=== PATIENT | male | born 2000 | race Caucasian/White ===

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

== ENCOUNTER 2021-02-17 01:34 | Observation (INO) | payer OTHER ==
[2021-02-17] MEDS ORDERED: SODIUM CHLORIDE 0.9% 1,000 ML IV STA (02:08)
[2021-02-17] MEDS ORDERED: ONDANSETRON 4 MG/2 ML VIAL IVP STA (02:08)
[2021-02-17] MEDS ORDERED: KETOROLAC 15 MG/ML 1 ML VIAL IVP STA ×2 (02:08→08:42)
--- NOTE | 2021-02-17 02:10 | ED ---
Abdominal Pain HPI - General Source: patient Mode of arrival: ambulatory Limitations: no limitations <Dakota South - Last Filed: 02/17/21 03:33> <Karl Cormier - Last Filed: 02/21/21 23:22> - General Chief Complaint: Abdominal Pain Stated Complaint: Abd Pain Time Seen by Provider: 02/17/21 01:47 - History of Present Illness Initial Comments: 20-year-old male presents to emergency Department with a chief complaint of abdominal pain. Patient reports the pain started several hours prior to arrival after he went to the gym. Patient reports it feels like pressure in the right lower quadrant region. He reports some nausea but denies any associated vomiting. No prior surgical abdominal history. Pain does not appear to be postprandial. States the pain is 7/10, pressure at this time. States the pain is exacerbated with palpation to the region. Denies any constipation or diarrhea. Denies any testicular swelling tenderness or penile discharge. Denies hematuria, hematochezia or melena. (Dakota South) - Related Data Previous Rx's Medication Instructions Recorded Acetaminophen Tab [Tylenol] 650 mg PO Q6H #30 tab 02/17/21 Docusate [Colace] 100 mg PO BID #20 cap 02/17/21 Ibuprofen [Motrin] 600 mg PO Q6HR PRN #40 tab 02/17/21 oxyCODONE HCL [OxyIR] 5 mg PO Q6H PRN 3 Days #10 tab 02/17/21 Allergies Allergy/AdvReac Type Severity Reaction Status Date / Time No Known Allergies Allergy Verified 02/17/21 06:45 Review of Systems ROS Other: All systems not noted in ROS Statement are negative. <Dakota [place] - Last Filed: 02/17/21 03:33> ROS Other: All systems not noted in ROS Statement are negative. <Karl Cormier - Last Filed: 02/21/21 23:22> ROS Statement: Those systems with pertinent positive or pertinent negative responses have been documented in the HPI. Past Medical History Past Medical History: Asthma History of Any Multi-Drug Resistant Organisms: None Reported Past Surgical History: Orthopedic Surgery Past Psychological History: No Psychological Hx Reported Smoking Status: Never smoker Past Alcohol Use History: None Reported Past Drug Use History: None Reported <Dakota South - Last Filed: 02/17/21 03:33> - Past Family History Mother Family Medical History: Diabetes Mellitus, Hypertension Father Family Medical History: AFIB, Hypertension <Karl Cormier - Last Filed: 02/21/21 23:22> General Exam Limitations: no limitations General appearance: alert, in no apparent distress, obese Head exam: Present: atraumatic, normocephalic, normal inspection Eye exam: Present: normal appearance, PERRL, EOMI Pupils: Present: normal accommodation ENT exam: Present: normal exam, normal oropharynx, mucous membranes moist Neck exam: Present: normal inspection, full ROM. Absent: tenderness Respiratory exam: Present: normal lung sounds bilaterally. Absent: respiratory distress Cardiovascular Exam: Present: regular rate, normal rhythm, normal heart sounds. Absent: systolic murmur GI/Abdominal exam: Present: soft, tenderness (Positive McBurney point tenderness). Absent: distended, guarding, rebound, rigid Extremities exam: Present: normal inspection, full ROM, normal capillary refill. Absent: tenderness Back exam: Present: normal inspection, full ROM. Absent: tenderness Neurological exam: Present: alert, oriented X3 Psychiatric exam: Present: normal affect, normal mood Skin exam: Present: warm, dry, intact, normal color <Dakota South - Last Filed: 02/17/21 03:33> Course Vital Signs 02/17/21 02/17/21 02/17/21 01:36 03:10 07:09 Temperature 97.2 F L Pulse Rate 68 78 77 Respiratory 18 16 18 Rate Blood Pressure 139/84 118/63 121/71 O2 Sat by Pulse 99 97 97 Oximetry Medical Decision Making - Lab Data Result diagrams: 02/17/21 02:15 02/17/21 02:15 <Dakota South - Last Filed: 02/17/21 03:33> - Lab Data Result diagrams: 02/18/21 11:22 02/17/21 02:15 <Karl Cormier - Last Filed: 02/21/21 23:22> - Medical Decision Making 20-year-old male presents to emergency Department with a chief complaint of ab dominal pain. rlq tenderness on exam. white count of 19k. ct abdomen pelvis shows acute appendicitis. pt will be admitted for further management. Dr cormier discussed with case with Dr Joyce. pt started on antibiotics. NPO. (Dakota South) I saw this patient in conjunction with the physician commercial real estate assistant. I performed independent history and physical exam. Agree with case management. (Karl Cormier) - Lab Data Lab Results 02/17/21 02/17/21 02/17/21 Range/Units 02:15 02:15 02:15 WBC 19.8 H (4.0-11.0) k/uL RBC 4.85 (4.30-5.90) m/uL Hgb 14.7 (13.0-17.5) gm/dL Hct 43.3 (39.0-53.0) % MCV 89.2 (80.0-100.0) fL MCH 30.3 (25.0-35.0) pg MCHC 33.9 (31.0-37.0) g/dL RDW 13.1 (11.5-15.5) % Plt Count 250 (150-450) k/uL MPV 7.9 Neutrophils % 89 % Lymphocytes % 6 % Monocytes % 3 % Eosinophils % 1 % Basophils % 0 % Neutrophils # 17.7 H (1.3-7.7) k/uL Lymphocytes # 1.1 (1.0-4.8) k/uL Monocytes # 0.6 (0-1.0) k/uL Eosinophils # 0.2 (0-0.7) k/uL Basophils # 0.1 (0-0.2) k/uL Sodium 135 L (137-145) mmol/L Potassium 3.9 (3.5-5.1) mmol/L Chloride 101 (98-107) mmol/L Carbon Dioxide 22 (22-30) mmol/L Anion Gap 12 mmol/L BUN 12 (9-20) mg/dL Creatinine 0.82 (0.66-1.25) mg/dL Est GFR (CKD-EPI)AfAm >90 (>60 ml/min/1.73 sqM) Est GFR (CKD-EPI)NonAf >90 (>60 ml/min/1.73 sqM) Glucose 105 H (74-99) mg/dL Calcium 10.3 H (8.4-10.2) mg/dL Total Bilirubin 1.1 (0.2-1.3) mg/dL AST 43 (17-59) U/L ALT 23 (4-49) U/L Alkaline Phosphatase 90 (38-126) U/L Total Protein 7.4 (6.3-8.2) g/dL Albumin 4.7 (3.5-5.0) g/dL Lipase 37 (23-300) U/L Urine Color Yellow Urine Appearance Clear (Clear) Urine pH 7.0 (5.0-8.0) Ur Specific [place] 1.025 (1.001-1.035) Urine Protein Negative (Negative) Urine Glucose (UA) Negative (Negative) Urine Ketones 2+ H (Negative) Urine Blood Negative (Negative) Urine Nitrite Negative (Negative) Urine Bilirubin Negative (Negative) Urine Urobilinogen <2.0 (<2.0) mg/dL Ur Leukocyte Esterase Negative (Negative) Coronavirus (PCR) (Not Detectd) 02/17/21 Range/Units 04:03 WBC (4.0-11.0) k/uL RBC (4.30-5.90) m/uL Hgb (13.0-17.5) gm/dL Hct (39.0-53.0) % MCV (80.0-100.0) fL MCH (25.0-35.0) pg MCHC (31.0-37.0) g/dL RDW (11.5-15.5) % Plt Count (150-450) k/uL MPV Neutrophils % % Lymphocytes % % Monocytes % % Eosinophils % % Basophils % % Neutrophils # (1.3-7.7) k/uL Lymphocytes # (1.0-4.8) k/uL Monocytes # (0-1.0) k/uL Eosinophils # (0-0.7) k/uL Basophils # (0-0.2) k/uL Sodium (137-145) mmol/L Potassium (3.5-5.1) mmol/L Chloride (98-107) mmol/L Carbon Dioxide (22-30) mmol/L Anion Gap mmol/L BUN (9-20) mg/dL Creatinine (0.66-1.25) mg/dL Est GFR (CKD-EPI)AfAm (>60 ml/min/1.73 sqM) Est GFR (CKD-EPI)NonAf (>60 ml/min/1.73 sqM) Glucose (74-99) mg/dL Calcium (8.4-10.2) mg/dL Total Bilirubin (0.2-1.3) mg/dL AST (17-59) U/L ALT (4-49) U/L Alkaline Phosphatase (38-126) U/L Total Protein (6.3-8.2) g/dL Albumin (3.5-5.0) g/dL Lipase (23-300) U/L Urine Color Urine Appearance (Clear) Urine pH (5.0-8.0) Ur Specific [place] (1.001-1.035) Urine Protein (Negative) Urine Glucose (UA) (Negative) Urine Ketones (Negative) Urine Blood (Negative) Urine Nitrite (Negative) Urine Bilirubin (Negative) Urine Urobilinogen (<2.0) mg/dL Ur Leukocyte Esterase (Negative) Coronavirus (PCR) Not Detected (Not Detectd) Disposition Is patient prescribed a controlled substance at d/c from ED?: No Time of Disposition: 03:35 <Dakota South - Last Filed: 02/17/21 03:33> <Karl Cormier - Last Filed: 02/21/21 23:22> Clinical Impression: Acute appendicitis Disposition: ADMITTED IP TO THIS HOSP Condition: Fair
[2021-02-17 02:30] LABS: Appearance,Urine Clear (Clear); Bilirubin,Urine Negative (Negative); Blood,Urine Negative (Negative); Color,Urine Yellow; Glucose,Urine (UA) Negative (Negative); Ketones,Urine 2+ (Negative); Leukocyte Esterase,Urine Negative (Negative); Nitrite,Urine Negative (Negative); Protein,Urine Negative (Negative); Specific Gravity,Urine 1.025 (1.001-1.035); Urobilinogen,Urine <2.0 mg/dL (<2.0)
[2021-02-17 02:33] LABS: Basophils # (A) 0.1 k/uL (0-0.2); Basophils % (A) 0 %; Eosinophils # (A) 0.2 k/uL (0-0.7); Eosinophils % (A) 1 %; HCT 43.3 % (39.0-53.0); HGB 14.7 gm/dL (13.0-17.5); Lymphocytes # (A) 1.1 k/uL (1.0-4.8); Lymphocytes % (A) 6 %; MCH 30.3 pg (25.0-35.0); MCHC 33.9 g/dL (31.0-37.0); MCV 89.2 fL (80.0-100.0); Mean Platelet Volume 7.9; Monocytes # (A) 0.6 k/uL (0-1.0); Monocytes % (A) 3 %; Neutrophils # (A) 17.7 k/uL (1.3-7.7); Neutrophils % (A) 89 %; Platelet Count 250 k/uL (150-450); RBC 4.85 m/uL (4.30-5.90); RDW 13.1 % (11.5-15.5); WBC 19.8 k/uL (4.0-11.0)
[2021-02-17 02:41] LABS: ALT 23 U/L (4-49); AST 43 U/L (17-59); African American GFR (CKD) >90 (>60 ml/min/1.73 sqM); Albumin 4.7 g/dL (3.5-5.0); Alkaline Phosphatase 90 U/L (38-126); Anion Gap 12 mmol/L; Blood Urea Nitrogen 12 mg/dL (9-20); Calcium 10.3 mg/dL (8.4-10.2); Carbon Dioxide 22 mmol/L (22-30); Chloride 101 mmol/L (98-107); Glucose 105 mg/dL (74-99); Lipase 37 U/L (23-300); Non-African American GFR(CKD) >90 (>60 ml/min/1.73 sqM); Potassium 3.9 mmol/L (3.5-5.1); Sodium 135 mmol/L (137-145); Total Bilirubin 1.1 mg/dL (0.2-1.3); Total Protein 7.4 g/dL (6.3-8.2)
--- NOTE | 2021-02-17 02:52 | CT ---
EXAMINATION TYPE: CT abdomen pelvis w con DATE OF EXAM: 02/17/2021 COMPARISON: None HISTORY: pain CT DLP: 992.9 mGycm Automated exposure control for dose reduction was used. CONTRAST: Performed with IV Contrast, patient injected with 100 mL of Isovue 300. Images obtained from the diaphragm to the floor the pelvis with IV contrast. Lung bases are clear. There is no pleural effusion. Heart size is normal. There is no pericardial eff usion. Liver spleen stomach pancreas gallbladder appear intact. Bile ducts are not dilated. There is no adrenal mass. Kidneys show satisfactory contrast opacification. There is no hydronephrosi s. Delayed images show normal renal excretion. There is no retroperitoneal adenopathy. Bladder disten ds smoothly. There is no inguinal hernia. There is no evidence of a pelvic mass. There is no free flu id in the pelvis. There is thickened appendix that measures 11 mm. There is mild fat stranding around the appendix. Lumbar vertebra appear intact. The posterior elements are intact. There is no compression fracture. B jordi pelvis is intact. There is no mesenteric edema. There is no ascites or free air. There is no derrick l obstruction. IMPRESSION: Thickened appendix with surrounding inflammation related to acute appendicitis. No abscess.
[2021-02-17] MEDS ORDERED: PIPERACILLIN-TAZOBACTAM 3.375 GM in SODIUM CHLORIDE 0.9% 100 ML IVPB STA (03:31)
[2021-02-17] MEDS ORDERED: ONDANSETRON 4 MG/2 ML VIAL IVP PRN (03:31)
[2021-02-17] MEDS ORDERED: NALOXONE 0.4 MG/ML 1 ML VIAL IV PRN (03:31)
[2021-02-17] MEDS: SODIUM CHLORIDE 0.9% 1,000 ML IV SCH ×3 (03:57→19:55)
[2021-02-17] MEDS: MORPHINE SULFATE 4 MG/ML SYRINGE IV PRN ×2 (03:57→18:20)
--- NOTE | 2021-02-17 08:50 | P.GSHP ---
History of Present Illness H&P Date: 02/17/21 CHIEF COMPLAINT: Abdominal pain HISTORY OF PRESENT ILLNESS: This is a 20-year-old male who had a sudden onset of right lower quadrant abdominal pain after his workout at the gym yesterday. He reports the pain came on suddenly. He did have some nausea denies any vomiting. Denies any change in bowel habits. Has reported some chills. He reports his pain at a 7 out of 10. He had computed tomography scan abdomen and pelvis completed showing thickened appendix with surrounding inflammation related to acute appendicitis. No abscess. White count was elevated at 19.8. Patient has been admitted to the hospital for acute appendicitis. PAST MEDICAL HISTORY: See list. PAST SURGICAL HISTORY: See list. MEDICATIONS: See list. ALLERGIES: See list. SOCIAL HISTORY: No illicit drug use. REVIEW OF SYSTEMS: CONSTITUTIONAL: Denies fever or chills. HEENT: Denies blurred vision, vision changes, or eye pain. Denies hemoptysis CARDIOVASCULAR: Denies chest pain or pressure. RESPIRATORY: No shortness of breath. GASTROINTESTINAL: See HPI for pertinent findings HEMATOLOGIC: Denies bleeding disorders. GENITOURINARY: Denies any blood in urine or increased urinary frequency. SKIN: Denies pruitis. Denies rash. PHYSICAL EXAM: VITAL SIGNS: Reviewed GENERAL: Well-developed in no acute distress. HEENT: No sclera icterus. Extraocular movements grossly intact. Moist buccal mucosa. Head is atraumatic, normocephalic. No nasal drainage. ABDOMEN: Soft. Nondistended. Right lower quadrant tenderness with palpation. Patient is guarding. NEUROLOGIC: Alert and oriented. Cranial nerves II through XII grossly intact. LABORATORY DATA: WBC is 19.8 hemoglobin 14.7 platelets 250 sodium 135 potassium 3.9 BUN 12 creatinine 0.82 LFTs normal lipase normal Urinalysis 2+ ketones no evidence of infection COVID-19 negative IMAGING: Computed tomography scan findings as stated above ASSESSMENT: 1. Acute appendicitis PLAN: -Patient scheduled for laparoscopic appendectomy today with Dr. lopes -Keep patient nothing by mouth -Continue IV antibiotics -Continue IV fluids -Patient reports that the morphine makes him nauseous. We'll give another dose of IV Toradol. Physician Over Short And Damage Clerk note has been reviewed by physician. Signing provider agrees with the documented findings, assessment, and plan of care. Past Medical History Past Medical History: Asthma History of Any Multi-Drug Resistant Organisms: None Reported Past Surgical History: Orthopedic Surgery Past Psychological History: No Psychological Hx Reported Smoking Status: Never smoker Past Alcohol Use History: None Reported Past Drug Use History: None Reported - Past Family History Mother Family Medical History: Diabetes Mellitus, Hypertension Father Family Medical History: AFIB, Hypertension Medications and Allergies Home Medications Medication Instructions Recorded Confirmed Type No Known Home Medications 02/17/21 02/17/21 History Allergies Allergy/AdvReac Type Severity Reaction Status Date / Time No Known Allergies Allergy Verified 02/17/21 06:45 Surgical - Exam Vital Signs Temp Pulse Resp BP Pulse Ox 97.2 F L 68 18 139/84 99 02/17/21 01:36 02/17/21 01:36 02/17/21 01:36 02/17/21 01:36 02/17/21 01:36 Results - Labs 02/17/21 02:15 02/17/21 02:15 Abnormal Lab Results - Last 24 Hours (Table) 02/17/21 02/17/21 02/17/21 Range/Units 02:15 02:15 02:15 WBC 19.8 H (4.0-11.0) k/uL Neutrophils # 17.7 H (1.3-7.7) k/uL Sodium 135 L (137-145) mmol/L Glucose 105 H (74-99) mg/dL Calcium 10.3 H (8.4-10.2) mg/dL Urine Ketones 2+ H (Negative) Diabetes panel 02/17/21 Range/Units 02:15 Sodium 135 L (137-145) mmol/L Potassium 3.9 (3.5-5.1) mmol/L Chloride 101 (98-107) mmol/L Carbon Dioxide 22 (22-30) mmol/L BUN 12 (9-20) mg/dL Creatinine 0.82 (0.66-1.25) mg/dL Glucose 105 H (74-99) mg/dL Calcium 10.3 H (8.4-10.2) mg/dL AST 43 (17-59) U/L ALT 23 (4-49) U/L Alkaline Phosphatase 90 (38-126) U/L Total Protein 7.4 (6.3-8.2) g/dL Albumin 4.7 (3.5-5.0) g/dL Calcium panel 02/17/21 Range/Units 02:15 Calcium 10.3 H (8.4-10.2) mg/dL Albumin 4.7 (3.5-5.0) g/dL Pituitary panel 02/17/21 Range/Units 02:15 Sodium 135 L (137-145) mmol/L Potassium 3.9 (3.5-5.1) mmol/L Chloride 101 (98-107) mmol/L Carbon Dioxide 22 (22-30) mmol/L BUN 12 (9-20) mg/dL Creatinine 0.82 (0.66-1.25) mg/dL Glucose 105 H (74-99) mg/dL Calcium 10.3 H (8.4-10.2) mg/dL Adrenal panel 02/17/21 Range/Units 02:15 Sodium 135 L (137-145) mmol/L Potassium 3.9 (3.5-5.1) mmol/L Chloride 101 (98-107) mmol/L Carbon Dioxide 22 (22-30) mmol/L BUN 12 (9-20) mg/dL Creatinine 0.82 (0.66-1.25) mg/dL Glucose 105 H (74-99) mg/dL Calcium 10.3 H (8.4-10.2) mg/dL Total Bilirubin 1.1 (0.2-1.3) mg/dL AST 43 (17-59) U/L ALT 23 (4-49) U/L Alkaline Phosphatase 90 (38-126) U/L Total Protein 7.4 (6.3-8.2) g/dL Albumin 4.7 (3.5-5.0) g/dL
[2021-02-17] MEDS: PIPERACILLIN-TAZOBACTAM 3.375 GM in SODIUM CHLORIDE 0.9% 100 ML IVPB SCH ×2 (13:15→19:55)
[2021-02-17] MEDS ORDERED: HEPARIN SODIUM,PORCINE/PF 5,000 UNIT/0.5 ML SYRINGE SQ ONE (14:33)
[2021-02-17] MEDS ORDERED: IV FLUID CONTINUATION 1,000 ML IV ONE (14:47)
[2021-02-17] MEDS ORDERED: DEXAMETHASONE SOD PHOSPHATE 4 MG/ML 1 ML VIAL IVP ONE (14:55)
[2021-02-17] MEDS ORDERED: HEPARIN SODIUM,PORCINE 5,000 UNIT/ML 1 ML VIAL SQ ONE (15:38)
[2021-02-17] MEDS ORDERED: NEOSTIGMINE 1 MG/ML 10 ML VIAL ONE (15:49)
[2021-02-17] MEDS ORDERED: ROCURONIUM 10 MG/ML (5 ML VIAL) IV ONE (15:49)
[2021-02-17] MEDS ORDERED: LIDOCAINE 1% INJ 10MG/ML (20 ML MDV) ONE (15:49)
[2021-02-17] MEDS ORDERED: SUCCINYLCHOLINE CHLORIDE 100 MG/5 ML SYR IV ONE (15:49)
[2021-02-17] MEDS ORDERED: MIDAZOLAM 2 MG/2 ML VIAL ONE (15:49)
[2021-02-17] MEDS ORDERED: KETAMINE 10 MG/ML 20 ML VIAL ONE (15:49)
[2021-02-17] MEDS ORDERED: GLYCOPYRROLATE 0.2 MG/ML 2 ML VIAL ONE (15:49)
[2021-02-17] MEDS ORDERED: PROPOFOL 10 MG/ML 20 ML VIAL IV ONE (15:49)
[2021-02-17] MEDS ORDERED: KETOROLAC 15 MG/ML 1 ML VIAL ONE (15:49)
[2021-02-17] MEDS ORDERED: fentaNYL (PF) 50 MCG/ML 2 ML AMP ONE (15:49)
[2021-02-17] MEDS ORDERED: BUPIVACAINE (PF) 0.25% 30 ML VIAL SQ ONE (16:14)
--- NOTE | 2021-02-17 16:20 | P.OP ---
Date of Procedure: 02/17/21 Preoperative Diagnosis: Acute appendicitis Postoperative Diagnosis: Acute appendicitis Procedure(s) Performed: Laparoscopic appendectomy Anesthesia: BRIAN Surgeon: Harpal Millan Estimated Blood Loss (ml): 5 Pathology: other (The) Condition: stable Disposition: PACU Description of Procedure: HThe patient's placed on the operating table in the supine position. The patient received general anesthesia. The abdomen was prepped and draped in the usual sterile fashion. The skin was anesthetized 1% local Xylocaine at the trocar sites. Using an 11 blade the skin was incised at the umbilicus. The umbilicus was grasped with a Quintin clamp and then a Veress needle was placed into the peritoneal cavity. Position of the Veress needle was confirmed with positive drop test. After adequate insufflation a 5 mm trocar was placed into the peritoneal cavity. The abdomen was further insufflated. And then the laparoscope was placed in the peritoneal cavity. Next a 5 mm trocar was placed in the midline suprapubic position. And then a 10 mm trocar was placed in the midline epigastric position. The patient was rotated with the right side up and in Trendelenburg. The appendix was visualized. The appendix appeared to be inflamed. The appendix was grasped and then using the Harmonic scissors the mesoappendix was divided. A PDS Endoloop was then placed around the base of the appendix. And then the appendix was divided using Harmonic scissors. The appe ndix was placed into an Endo Catch and brought out through the 10 mm trocar site. The abdomen was irrigated. There is no bleeding seen. The trochars withdrawn. The skin was closed interrupted 3-0 Monocryl suture. Dermabond dressing was applied. Patient was sent to recovery room in stable condition.
[2021-02-17] MEDS ORDERED: HYDROmorphone 0.5 MG/0.5 ML SYRINGE IVP ONE (16:52)
[2021-02-17] MEDS ORDERED: SODIUM CHLORIDE 0.9% 1,000 ML IV ONE (17:01)
[2021-02-18] MEDS: MORPHINE SULFATE 4 MG/ML SYRINGE IV PRN (02:26)
[2021-02-18] MEDS: PIPERACILLIN-TAZOBACTAM 3.375 GM in SODIUM CHLORIDE 0.9% 100 ML IVPB SCH (04:11)
[2021-02-18 07:45] VITALS: BP 114/64; PULSE 87; RESP 18; TEMP 98.4
[2021-02-18] MEDS ORDERED: ENOXAPARIN 40 MG/0.4 ML SYRINGE SQ SCH (09:00)
[2021-02-18 11:49] LABS: Basophils # (A) 0.1 k/uL (0-0.2); Basophils % (A) 0 %; Eosinophils # (A) 0.1 k/uL (0-0.7); Eosinophils % (A) 1 %; HCT 39.4 % (39.0-53.0); Lymphocytes # (A) 2.8 k/uL (1.0-4.8); Lymphocytes % (A) 26 %; MCH 31.3 pg (25.0-35.0); MCHC 35.6 g/dL (31.0-37.0); MCV 87.9 fL (80.0-100.0); Monocytes # (A) 0.4 k/uL (0-1.0); Monocytes % (A) 4 %; Neutrophils % (A) 66 %; Platelet Count 289 k/uL (150-450); RBC 4.48 m/uL (4.30-5.90); RDW 13.7 % (11.5-15.5); WBC 10.7 k/uL (4.0-11.0)
--- NOTE | 2021-02-18 12:37 | P.DS ---
Providers Date of admission: 02/17/21 04:27 Expected date of discharge: 02/18/21 Attending physician: Harpal Millan Primary care physician: Stated None Hospital Course: Patient doing well today. Tolerating diet. He would like to go home today. No nausea or vomiting. Was admitted with acute appendicitis. Underwent laparoscopic appendectomy. We'll discharge. Follow-up one week. Patient Condition at Discharge: Fair Plan - Discharge Summary Discharge Rx Participant: No New Discharge Prescriptions: New Ibuprofen [Motrin] 600 mg PO Q6HR PRN #40 tab PRN Reason: Pain oxyCODONE HCL [OxyIR] 5 mg PO Q6H PRN 3 Days #10 tab PRN Reason: Pain Docusate [Colace] 100 mg PO BID #20 cap Acetaminophen Tab [Tylenol] 650 mg PO Q6H #30 tab Discharge Medication List Acetaminophen Tab [Tylenol] 650 mg PO Q6H #30 tab 02/17/21 [Rx] Docusate [Colace] 100 mg PO BID #20 cap 02/17/21 [Rx] Ibuprofen [Motrin] 600 mg PO Q6HR PRN #40 tab 02/17/21 [Rx] oxyCODONE HCL [OxyIR] 5 mg PO Q6H PRN 3 Days #10 tab 02/17/21 [Rx] Follow up Appointment(s)/Referral(s): None,Stated [Primary Care Provider] - 1-2 days Harpal Millan MD [STAFF PHYSICIAN] - 1 Week
== END 2021-02-18 13:11 | disposition home or self-care (01) ==
LOC: EC 01:34 → 6NMEDSUR 04:27
PROVIDERS: ADMIT Surgery; ATTEND Surgery
DX: K35.80 Unspecified acute appendicitis (principal); J45.909 Unspecified asthma, uncomplicated; Z82.49 Family history of ischemic heart disease and other diseases of the circulatory system; Z83.3 Family history of diabetes mellitus
CPT/HCPCS: 44970; 99285; 96361; 96374; 96375; 36415; 88304; 80053; 83690; 85025 ×2; 81003; 87635; 74177; G0378 ×2; J2543 ×2; J2250; J2270 ×2; J1644; J1100; J2710; J2405; J2001; J1650; J3010; J1885; J0330; J2704; J1170; Q9967

== ENCOUNTER 2021-07-03 21:14 | Emergency (ER) | payer OTHER ==
[2021-07-03 21:23] VITALS: BP 123/77; PULSE 81; RESP 18; TEMP 98.9
[2021-07-03] MEDS ORDERED: TOPICAL SKIN ADHESIVE 1 EACH AMP TOPICAL ONE (23:12)
--- NOTE | 2021-07-03 23:19 | ED ---
Wound/Laceration HPI - General Chief Complaint: Wound/Laceration Stated Complaint: [facility] , laceration on finger Time Seen by Provider: 07/03/21 23:05 Source: patient, RN notes reviewed Mode of arrival: ambulatory - History of Present Illness Initial Comments: Patient presents to the emergency department after injuring his left finger with a box packer at work. He has a superficial laceration. Patient states his tetanus is up-to-date being within the last 10 years. No significant pain. No functional parent. No other injuries. No history of immunosuppression. No headache, no fever or chills, no changes in vision or hearing, no sore throat or difficulty with speech, no neck pain, no chest pain or shortness of breath, no abdominal pain, no nausea or vomiting, no changes in urination or bowel movements, no numbness or tingling, no extremity pain, no skin rashes or lesions. - Related Data Previous Rx's Medication Instructions Recorded Acetaminophen Tab [Tylenol] 650 mg PO Q6H #30 tab 02/17/21 Docusate [Colace] 100 mg PO BID #20 cap 02/17/21 Ibuprofen [Motrin] 600 mg PO Q6HR PRN #40 tab 02/17/21 oxyCODONE HCL [OxyIR] 5 mg PO Q6H PRN 3 Days #10 tab 02/17/21 Allergies Allergy/AdvReac Type Severity Reaction Status Date / Time No Known Allergies Allergy Verified 07/03/21 21:23 Review of Systems ROS Statement: Those systems with pertinent positive or pertinent negative responses have been documented in the HPI. ROS Other: All systems not noted in ROS Statement are negative. Past Medical History Past Medical History: Asthma History of Any Multi-Drug Resistant Organisms: None Reported Past Surgical History: Orthopedic Surgery Past Psychological History: No Psychological Hx Reported Smoking Status: Never smoker Past Alcohol Use History: None Reported Past Drug Use History: None Reported - Past Family History Mother Family Medical History: Diabetes Mellitus, Hypertension Father Family Medical History: AFIB, Hypertension General Exam General appearance: alert, in no apparent distress Head exam: Present: atraumatic, normocephalic, normal inspection Eye exam: Present: normal appearance, PERRL, EOMI. Absent: scleral icterus, conjunctival injection, periorbital swelling ENT exam: Present: normal exam, mucous membranes moist Neck exam: Present: normal inspection. Absent: tenderness, meningismus, lymphadenopathy Respiratory exam: Present: normal lung sounds bilaterally. Absent: respiratory distress, wheezes, rales, rhonchi, stridor Cardiovascular Exam: Present: regular rate, normal rhythm, normal heart sounds. Absent: systolic murmur, diastolic murmur, rubs, gallop, clicks GI/Abdominal exam: Present: soft, normal bowel sounds. Absent: tenderness Extremities exam: Present: full ROM, normal capillary refill. Absent: tenderness, pedal edema, joint swelling, calf tenderness Back exam: Present: normal inspection Neurological exam: Present: alert, oriented X3, CN II-XII intact Psychiatric exam: Present: normal affect, normal mood Skin exam: Present: warm, dry, intact, normal color. Absent: rash Course Vital Signs 07/03/21 21:18 Temperature 98.9 F Pulse Rate 81 Respiratory 18 Rate Blood Pressure 123/77 O2 Sat by Pulse 98 Oximetry Procedures - Laceration Laceration #1 Consent Obtained: verbal consent Indication: laceration Site: hand Size (cm): 2 Description: flap, clean Depth: simple, single layer Pre-repair: wound explored, irrigated extensively Size of Sutures: other (Tissue adhesive) Technique: other (Tissue adhesive) Patient Tolerated Procedure: well, no complications Additional Comments: No need for imaging as this was a very superficial flap-like laceration. Appears to be adequate vascular flow Medical Decision Making - Medical Decision Making Patient counseled on signs and symptoms of infection. Patient counseled on wound care. Return in follow-up and was discussed. All questions answered. Patient was told to return to the ER for any signs or symptoms worsen. Told to return immediately if any other problems arise. All questions answered. Treatment plan discussed. Patient in agreement Disposition Clinical Impression: Laceration of left index finger without foreign body without damage to nail Disposition: HOME SELF-CARE Instructions (If sedation given, give patient instructions): Skin Adhesive Care (ED) Additional Instructions: Watch for signs and symptoms of infection. Return to the ER if any problems or difficulties arise. Is patient prescribed a controlled substance at d/c from ED?: No Referrals: None,Stated [Primary Care Provider] - 1-2 days
== END 2021-07-03 23:51 | disposition home or self-care (01) ==
LOC: EC 21:14
DX: S61.211A Laceration without foreign body of left index finger without damage to nail, initial encounter (principal); J45.909 Unspecified asthma, uncomplicated; W26.8XXA Contact with other sharp object(s), not elsewhere classified, initial encounter
CPT/HCPCS: 12001; 99282

== ENCOUNTER 2021-12-22 06:11 | Inpatient (IN) | payer MEDICAID, OTHER ==
--- NOTE | 2021-12-22 07:04 | ED ---
Psych HPI - General Chief Complaint: Psychiatric Symptoms Stated Complaint: Mental health Time Seen by Provider: 12/22/21 06:19 Source: patient, family Mode of arrival: ambulatory - History of Present Illness Initial Comments: Patient is a 21-year-old male presenting with chief complaint of suicidal ideation. Patient states he's had these thoughts for years, they have worsened since moving back to [place] about 3 months ago. Patient states he has a plan to take his own life by overdosing and Tylenol. He denies any homicidal ideation. He has no physical complaints at this time. Denies any abdominal pain, nausea, vomiting, chest pain, shortness of breath, hallucinations. - Related Data Home Medications Medication Instructions Recorded Confirmed No Known Home Medications 12/22/21 12/22/21 Allergies Allergy/AdvReac Type Severity Reaction Status Date / Time No Known Allergies Allergy Verified 12/22/21 15:08 Review of Systems ROS Statement: Those systems with pertinent positive or pertinent negative responses have been documented in the HPI. ROS Other: All systems not noted in ROS Statement are negative. Past Medical History Past Medical History: Asthma History of Any Multi-Drug Resistant Organisms: None Reported Past Surgical History: Orthopedic Surgery Past Psychological History: Anxiety, Depression Smoking Status: Former smoker Past Alcohol Use History: Occasional Past Drug Use History: None Reported - Past Family History Mother Family Medical History: Diabetes Mellitus, Hypertension Father Family Medical History: AFIB, Hypertension General Exam Limitations: no limitations General appearance: alert, in no apparent distress Head exam: Present: atraumatic, normocephalic, normal inspection Eye exam: Present: normal appearance, EOMI. Absent: scleral icterus, periorbital swelling Neck exam: Present: normal inspection Respiratory exam: Present: normal lung sounds bilaterally. Absent: respiratory distress, wheezes, rales, rhonchi, stridor Cardiovascular Exam: Present: regular rate, normal rhythm, normal heart sounds. Absent: systolic murmur, diastolic murmur, rubs, gallop, clicks Neurological exam: Present: alert, oriented X3, CN II-XII intact Psychiatric exam: Present: normal mood, flat affect Skin exam: Present: warm, dry, intact, normal color. Absent: rash Course Vital Signs 12/22/21 06:13 Temperature 98.4 F Pulse Rate 79 Respiratory 22 Rate Blood Pressure 148/80 O2 Sat by Pulse 99 Oximetry Medical Decision Making - Medical Decision Making Patient was evaluated by EPS. He will be admitted for inpatient evaluation and management. - Lab Data Lab Results 12/22/21 12/22/21 12/22/21 Range/Units 06:31 06:53 12:07 Urine Opiates Screen Not Detected (NotDetected) Ur Oxycodone Screen Not Detected (NotDetected) Urine Methadone Screen Not Detected (NotDetected) Ur Propoxyphene Screen Not Detected (NotDetected) Acetaminophen <10.0 ug/mL Ur Barbiturates Screen Not Detected (NotDetected) U Tricyclic Antidepress Not Detected (NotDetected) Ur Phencyclidine Scrn Not Detected (NotDetected) Ur Amphetamines Screen Not Detected (NotDetected) U Methamphetamines Scrn Not Detected (NotDetected) U Benzodiazepines Scrn Not Detected (NotDetected) Urine Cocaine Screen Not Detected (NotDetected) U Marijuana (THC) Screen Detected H (NotDetected) Coronavirus (PCR) Not Detected (Not Detectd) Disposition Clinical Impression: Suicidal ideation Disposition: ADMITTED IP TO THIS HOSP Condition: Fair Time of Disposition: 13:06 Decision to Admit Reason: Admit from EC Decision Date: 12/22/21 Decision Time: 13:06
[2021-12-22 07:52] LABS: Amphetamine Screen,Urine Not Detected (NotDetected); Barbiturate Screen,Urine Not Detected (NotDetected); Benzodiazepines Screen,Urine Not Detected (NotDetected); Cocaine Screen,Urine Not Detected (NotDetected); Methadone Screen, Urine Not Detected (NotDetected); Opiate Screen,Urine Not Detected (NotDetected); Oxycodone Screen, Urine Not Detected (NotDetected); Phencyclidine Screen,Urine Not Detected (NotDetected); Tricyclic Antidepressant,Urine Not Detected (NotDetected); Urn Cannabinoid Scrn Detected (NotDetected)
[2021-12-22] MEDS ORDERED: LORazepam 1 MG TAB PO STA (08:33)
[2021-12-22] MEDS ORDERED: MAG HYDROX/AL HYDROX/SIMETH 30 ML CUP PO PRN (12:57)
[2021-12-22] MEDS ORDERED: ACETAMINOPHEN TAB 325 MG TAB PO PRN (12:57)
[2021-12-22] MEDS ORDERED: MAGNESIUM HYDROXIDE 2,400 MG/10 ML CUP PO PRN (12:57)
[2021-12-22] MEDS ORDERED: HALOPERIDOL LACTATE 5 MG/ML 1 ML VIAL IM PRN (12:57)
[2021-12-22] MEDS ORDERED: LORazepam 2 MG/ML INJ IM PRN (13:02)
[2021-12-22] MEDS ORDERED: haloperidoL 5 MG TAB PO PRN (13:03)
--- NOTE | 2021-12-22 17:12 | P.HPMEDMHU ---
History of Present Illness H&P Date: 12/22/21 Chief Complaint: Suicide idealization Patient is a 21-year-old male with no past medical history was admitted to the psych unit for suicide idealization. Patient currently denies any acute complaints. He is wondering when he'll be able to leave the psych unit. Patient denies any chest pain nausea vomiting diarrhea. Patient states that he takes steroids for muscle building. Review of Systems 10 ROS reviewed and are negative except as noted in HPI Past Medical History Past Medical History: Asthma History of Any Multi-Drug Resistant Organisms: None Reported Past Surgical History: Orthopedic Surgery Past Psychological History: Anxiety, Depression Smoking Status: Former smoker Past Alcohol Use History: Occasional Past Drug Use History: None Reported - Past Family History Mother Family Medical History: Diabetes Mellitus, Hypertension Father Family Medical History: AFIB, Hypertension Medications and Allergies Home Medications Medication Instructions Recorded Confirmed Type No Known Home Medications 12/22/21 12/22/21 History Allergies Allergy/AdvReac Type Severity Reaction Status Date / Time No Known Allergies Allergy Verified 12/22/21 15:08 Physical Exam Osteopathic Statement: *. No significant issues noted on an osteopathic structural exam other than those noted in the History and Physical/Consult. Vitals: Vital Signs Temp Pulse Pulse Resp BP BP Pulse Ox 12/22/21 14:29 98.4 F 73 15 132/66 12/22/21 06:13 98.4 F 79 22 148/80 99 Intake and Output 12/22/21 12/22/21 12/22/21 06:59 14:59 22:59 Other: Weight 95.254 kg 95.254 kg General: [Alert and oriented, well nourished, no acute distress]. Eye: [PERRL, EOMI, normal conjunctiva]. HENT: [Normocephalic, clear tympanic membranes, normal hearing, moist oral mucosa, no scleral icterus, no sinus tenderness]. Neck: [Supple, non-tender, no carotid bruits, no JVD, no lymphadenopathy]. Lungs: [Clear to auscultation and percussion, non-labored respiration]. Heart: [Normal rate, regular rhythm, no murmur, gallop or edema]. Abdomen: [Soft, non-tender, non-distended, normal bowel sounds, no masses]. Musculoskeletal: [Normal range of motion and strength, no tenderness or swelling]. Skin: [Skin is warm, dry and pink, no rashes or lesions]. Neurologic: [Awake, alert, and oriented X3, CN II-XII intact]. Psychiatric: [Cooperative, appropriate mood and affect]. Cranial Nerve Examination - Cranial Nerves Cranial Nerve I- Olfactory: Intact Cranial Nerve II- Optic: Intact Cranial Nerve III- Oculomotor: Intact Cranial Nerve IV- Trochlear: Intact Cranial Nerve V- Trigeminal: Intact Cranial Nerve - Abducens: Intact Cranial Nerve VII- Facial: Intact Cranial Nerve VIII- Auditory: Intact Cranial Nerve IX- Glossopharyngeal: Intact Cranial Nerve X- Vagus: Intact Cranial Nerve XI- Accessory: Intact Cranial Nerve XII- Hypoglossal: Intact Results Labs: Abnormal Lab Results - Last 24 Hours (Table) 12/22/21 Range/Units 06:31 U Marijuana (THC) Screen Detected H (NotDetected) Thrombosis Risk Factor Assmnt - Choose All That Apply Each Factor Represents 1 point: Obesity (BMI >25) Other Risk Factors: No Thrombosis Risk Factor Assessment Total Risk Factor Score: 1 Thrombosis Risk Factor Assessment Level: Low Risk Assessment and Plan Assessment: Suicide idealization -As per your psychiatric management Marijuana use -Patient counseled on cessation Thank you for the consult. Please do not hesitate to cause with questions
[2021-12-22] MEDS: LORazepam 1 MG TAB PO PRN (20:34)
[2021-12-23 06:53] VITALS: RESP 18
[2021-12-23] MEDS: NICOTINE 14MG/24HR PATCH TRANSDERM SCH ×2 (09:18→14:06)
--- NOTE | 2021-12-23 09:34 | P.HP ---
Psychiatric H&P - . H&P Date: 12/23/21 History & Physical: Allergies Allergy/AdvReac Type Severity Reaction Status Date / Time No Known Allergies Allergy Verified 12/22/21 15:08 Vital Signs Temp 98.1 F 12/23/21 06:52 Pulse 73 12/23/21 06:52 Resp 18 12/23/21 06:52 BP 125/57 12/23/21 06:52 Pulse Ox 99 12/22/21 06:13 FiO2 Intake & Output 12/22/21 12/23/21 12/23/21 18:59 06:59 18:59 Weight 95.254 kg Laboratory Last Values Urine Opiates Screen Not Detected (NotDetected) 12/22/21 06:31 Ur Oxycodone Screen Not Detected (NotDetected) 12/22/21 06:31 Urine Methadone Screen Not Detected (NotDetected) 12/22/21 06:31 Ur Propoxyphene Screen Not Detected (NotDetected) 12/22/21 06:31 Acetaminophen <10.0 ug/mL 12/22/21 06:53 Ur Barbiturates Screen Not Detected (NotDetected) 12/22/21 06:31 U Tricyclic Antidepress Not Detected (NotDetected) 12/22/21 06:31 Ur Phencyclidine Scrn Not Detected (NotDetected) 12/22/21 06:31 Ur Amphetamines Screen Not Detected (NotDetected) 12/22/21 06:31 U Methamphetamines Scrn Not Detected (NotDetected) 12/22/21 06:31 U Benzodiazepines Scrn Not Detected (NotDetected) 12/22/21 06:31 Urine Cocaine Screen Not Detected (NotDetected) 12/22/21 06:31 U Marijuana (THC) Screen Detected (NotDetected) H 12/22/21 06:31 Coronavirus (PCR) Not Detected (Not Detectd) 12/22/21 12:07 12/23/21 09:21 Patient is a 21-year-old male presenting with chief complaint of suicidal ideation. HPI: Patient states he's had these thoughts for years. He says that just getting out of bed getting dressed and push himself to do the minimum puts him through "hell". And this has been true even before the problem with his girlfriend. His depressive symptoms have worsened since moving back to [place] about 3 months ago. Patient states he has a plan to take his own life by overdosing and Tylenol. He denies any homicidal ideation. The patient has had a relationship for 4 years with his girlfriend. He thought he could build a life with her she talked him into leaving a six-figure job down in [place] and moving to [place] they're going to get an apartment together. He admits that she had given him some indication that she was an unstable person but he "loved her so much" that he overlooked all that. After moving to [place] she dumped him and left him without a place to stay or a job. This added to the long-term low-grade depression and he felt suicidal. Physical: He has no physical complaints at this time. Denies any abdominal pain, nausea, vomiting, chest pain, shortness of breath, hallucinations. Social history: The patient is the third of 4 children born to his parents and dad abandoned the family shortly after he was born neither parent remarried dad has a long-term relationship with a lady that have a boy together the patient has a half sibling has an older full brother and 2 older sisters. Everyone in the family struggled due to the environment with drugs and gangs. The patient himself tried cocaine it just didn't doing for him he never liked alcohol he does use marijuana from time to time. It calms him down but does not help the depression. He says that his father and stepmom were pretty messed up for a long time but they've gotten her act together and are stable and say that he can live with them while he finishes school. His brother was into drugs even after getting but in 2018 he asked his , "what year is this? "She told him and he said he thought was 2013. This chart him loose he came off the drugs found yarsani and they're about to have a child. The patient plans to go down and get encouraged by an reconnect with his brother as part of his plan to pull his life together. In school he dropped out before he got a high school degree and plans to go back and finish his GED and probably go on to college. He does have resources he has some money in the bank and a car. Mental status exam: Patient is alert with a sad affect. Somewhat slow response times. He says, "I have ADHD. " He could remember 3 of 3 objects after 3 minutes, general information is somewhat limited he could only name the last 3 presidents and none of the [place]., Abstractability is good he appears to be intelligent but education is somewhat lacking. 4 cats and snakes he says that they breathe they see and they're just trying to survive. For the grass looks screen and outside of the fence and he said worry about your own things. Concentration is adequate he could spell world backward. He tends to race at things which is typical of people with ADHD so asked him to subtract 7 from 93 and he said 92 that he said what did you ask 70 from something when I told him 7 from 93 again he said 86. So he can do well as long as he can race at things. He denies any psychotic symptoms and did not evidence any no paranoia. Symptoms: Low energy and poor concentration unable to enjoy feels sad ruminates on the loss. He says the thoughts that he should kill himself as gaunt and left him feeling even worse because at least it felt like he could do something about the loss and maybe even make her pay for by making her feel bad. He realizes that was full it but now he just has to process that there is something bad he can't do anything about. Assessment: Agent was a real danger to himself he is beginning to have some hope but he has a long-term low-grade depression that needs to be treated and he needs to put together a discharge plan or the first problem he runs into he'll be suicidal again. Plan: Begin Wellbutrin on given 300 today and 300 tomorrow if he tolerated we might increase it to 450 before he leaves and he'll need to have follow-up for that. That should address both the ADHD symptoms and motivation and focus. Diagnosis major depression recurrent episode nonpsychotic/dysthymic disorder/ADHD
[2021-12-23] MEDS: buPROPion XL 300 MG TAB.ER.24H PO SCH (09:42)
[2021-12-23] MEDS: LORazepam 1 MG TAB PO PRN (18:06)
[2021-12-24] MEDS: LORazepam 1 MG TAB PO PRN ×3 (04:59→23:02)
[2021-12-24 05:01] VITALS: BP 123/76; PULSE 72; TEMP 97.4
[2021-12-24] MEDS: buPROPion XL 300 MG TAB.ER.24H PO SCH (09:16)
[2021-12-24] MEDS: NICOTINE 14MG/24HR PATCH TRANSDERM SCH (09:16)
--- NOTE | 2021-12-24 12:16 | P.PN ---
Subjective Progress Note Date: 12/24/21 Principal diagnosis: Diagnosis major depression recurrent episode nonpsychotic Dysthymic disorder Subjective the patient is tolerating the medicine he had 300 of Wellbutrin yesterday and 300 this morning he does not feel jittery or dizzy. He is working on putting together a post discharge has given up suicide as a way of getting control of things and has been talking to his family. Objective still serious and somewhat sad affect good eye contact good energy he is #1 coping skill is working out and he's been doing that. No evidence of psychosis no aggression no irritability good concentration. Assessment: Seems to have given up to suicide still moderately depressed that seems to be backing off a little and he is tolerating the medicine I think he needs Wellbutrin long-term because of the dysthymia so he doesn't continue to wallow and confined energy he needs to rebuild his life. Plan increase Wellbutrin tomorrow morning to 450 and have him work on a discharge plan Objective - Vital Signs Vital signs: Vital Signs Temp 97.4 F L 12/24/21 05:00 Pulse 72 12/24/21 05:00 Resp 18 12/24/21 05:00 BP 123/76 12/24/21 05:00 Pulse Ox 99 12/22/21 06:13 FiO2 Intake & Output 12/23/21 12/24/21 12/24/21 18:59 06:59 18:59 Weight 91 kg
[2021-12-25] MEDS: NICOTINE 14MG/24HR PATCH TRANSDERM SCH (08:13)
[2021-12-25] MEDS ORDERED: buPROPion XL 150 MG TAB.ER.24H PO SCH (09:00)
--- NOTE | 2021-12-25 11:05 | P.DS ---
Providers Date of admission: 12/22/21 12:55 Expected date of discharge: 12/25/21 Attending physician: Hang Arroyo MD Consults: 12/22/21 12:57 Consult Physician Routine Consulting Provider: Gustavo Bridges Consult Reason/Comments: medical management Do you want consulting provider notified?: Yes Primary care physician: Stated None - Discharge Diagnosis(es) (1) Major depressive disorder Current Visit: Yes Status: Acute Priority: High (2) ADHD Current Visit: Yes Status: Suspected Priority: Medium Hospital Course: Admission HPI: Initial psychiatric evaluation was completed by Dr Gilbert who wrote: "Patient is a 21-year-old male presenting with chief complaint of suicidal ideation. HPI: Patient states he's had these thoughts for years. He says that just getting out of bed getting dressed and push himself to do the minimum puts him through "hell". And this has been true even before the problem with his girlfriend. His depressive symptoms have worsened since moving back to [place] about 3 months ago. Patient states he has a plan to take his own life by overdosing and Tylenol. He denies any homicidal ideation. The patient has had a relationship for 4 years with his girlfriend. He thought he could build a life with her she talked him into leaving a six-figure job down in [place] and moving to [place] they're going to get an apartment together. He admits that she had given him some indication that she was an unstable person but he "loved her so much" that he overlooked all that. After moving to [place] she dumped him and left him without a place to stay or a job. This added to the long-term low-grade depression and he felt suicidal. Physical: He has no physical complaints at this time. Denies any abdominal pain, nausea, vomiting, chest pain, shortness of breath, hallucinations. Social history: The patient is the third of 4 children born to his parents and dad abandoned the family shortly after he was born neither parent remarried dad has a long-term relationship with a lady that have a boy together the patient has a half sibling has an older full brother and 2 older sisters. Everyone in the family struggled due to the environment with drugs and gangs. The patient himself tried cocaine it just didn't doing for him he never liked alcohol he does use marijuana from time to time. It calms him down but does not help the depression. He says that his father and stepmom were pretty messed up for a long time but they've gotten her act together and are stable and say that he can live with them while he finishes school. His brother was into drugs even after getting but in 2018 he asked his , "what year is this? "She told him and he said he thought was 2013. This chart him loose he came off the drugs found bahai and they're about to have a child. The patient plans to go down and get encouraged by an reconnect with his brother as part of his plan to pull his life together. In school he dropped out before he got a high school degree and plans to go back and finish his GED and probably go on to college. He does have resources he has some money in the bank and a car." Hospital course: Upon admission to the unit patient was initially noted to be depressed with suicidal ideation. Patient was however directable and agreeable to commence treatment. Patient got along well with other patients on the unit and followed unit protocol. Patient was compliant with the medications and denied any side effects throughout hospital course. Patient was started on Wellbutrin for management of depression. Patient spoke of his stressors and engaged in therapy both group and individual. Patient was also seen by medical team for history and physical exam. Over the course of hospitalization, the patient displayed significant improvement in regards to his mood and became more future and goal oriented. He reports that he starts a new job in December. He developed better insight into his presentation and was able to learn appropriate coping skills. He was calm and cooperative with staff and peers. On the day of discharge, the patient is not reporting any suicidal or homicidal ideation, intention, and/or plan. He reports no access to firearms or other weapons. He denies any auditory or visual hallucinations. He reports a strong desire to live for himself and for his family. He is not endorsing any paranoid or bizarre delusions. The patient does not have a significant history of substance abuse however was counseled on abstaining from all substances including alcohol, marijuana, and illicit drugs. The patient was counseled on his medications and need for regular compliance and was encouraged to follow-up with his outpatient appointments for mental health. The risks, benefits, treatment alternatives of medication was discussed in great detail with the patient. He reported no significant concerns and denied any medical issues prior to discharge. Mental status exam: General Appearance: Patient appears to be stated age is alert, pleasant, and cooperative. Patient is in no acute distress and has fair hygiene and grooming Behavior: Patient is calmly seated without any agitated behavior. Speech: Patient's speech is fluent and nonpressured. Mood/Affect: Patient reports their mood is "feeling really good", affect is congruent and euthymic. Suicidality/Homicidality: Patient denies having any suicidal or homicidal ideation intent or plan. Perceptions: Patient denies any auditory or visual hallucinations. Though content/process: There is no evidence of any delusional thought content and thought process is linear and goal-directed. Patient is future oriented. Memory and concentration: AOX3, grossly intact for the purposes of this session. Can spell "WORLD" backwards correctly. Judgment and insight: Improved Impression: Major depressive disorder ADHD Plan: -Continue with discharge today as patient has improved and stabilized psychiatrically and is not currently an imminent threat to himself and/or others. -Continue medications: Wellbutrin XL 450 mg by mouth daily for depression and ADHD -Patient was counseled on the need for medication compliance and appropriate follow-up at mental health and also primary care for medical issues. Patient verbalized understanding and agreed. -Social work to arrange for and conduct family meeting to ensure safety upon discharge and answer any questions/concerns. Social work also to arrange for patients follow up appointments for psychiatric care along with follow up with primary care provider. -Patient counseled on abstaining from recreational drugs and marijuana and alcohol. Was informed/educated on the adverse effects on their physical and mental health. Patient verbally agreed and understood. -Patient was instructed to return to the hospital or seek immediate medical care if their psychiatric or medical symptoms do worsen or reoccur. -Psychoeducation and supportive therapy provided to patient. Risks and benefits of pharmacological treatment versus the risks and benefits of nontreatment weight and discussed. Informed consent discussion held. Common side effects of psychotropics discussed such as, but not limited to headache, GI disturbance, sexual dysfunction, movement disorders, sedation, and orthostatic hypotension. Life threatening and blackbox warnings of prescribed medications also discussed. Potential risks of operating a vehicle or heavy machinery discussed with patient at length. Advised on importance of compliance and a reliable and responsible manner. Patient advised to review FDA consumer labeling of all medications prior to taking. Patient verbalized understanding of potential risks, and agrees with current treatment plan. Patient advised to medically contact physician/emergency personnel if any acute changes in condition occur. Allergies Allergy/AdvReac Type Severity Reaction Status Date / Time No Known Allergies Allergy Verified 12/22/21 15:08 Laboratory Results Urine Opiates Screen Not Detected (NotDetected) 12/22/21 06:31 Ur Oxycodone Screen Not Detected (NotDetected) 12/22/21 06:31 Urine Methadone Screen Not Detected (NotDetected) 12/22/21 06:31 Ur Propoxyphene Screen Not Detected (NotDetected) 12/22/21 06:31 Acetaminophen <10.0 ug/mL 12/22/21 06:53 Ur Barbiturates Screen Not Detected (NotDetected) 12/22/21 06:31 U Tricyclic Antidepress Not Detected (NotDetected) 12/22/21 06:31 Ur Phencyclidine Scrn Not Detected (NotDetected) 12/22/21 06:31 Ur Amphetamines Screen Not Detected (NotDetected) 12/22/21 06:31 U Methamphetamines Scrn Not Detected (NotDetected) 12/22/21 06:31 U Benzodiazepines Scrn Not Detected (NotDetected) 12/22/21 06:31 Urine Cocaine Screen Not Detected (NotDetected) 12/22/21 06:31 U Marijuana (THC) Screen Detected (NotDetected) H 12/22/21 06:31 Coronavirus (PCR) Not Detected (Not Detectd) 12/22/21 12:07 Vital Signs Temp 97.4 F L 12/24/21 05:00 Pulse 72 12/24/21 05:00 Resp 18 12/24/21 05:00 BP 123/76 12/24/21 05:00 Pulse Ox 99 12/22/21 06:13 FiO2 Intake & Output 12/24/21 12/25/21 12/25/21 18:59 06:59 18:59 Weight 91 kg Patient Condition at Discharge: Stable Plan - Discharge Summary Discharge Rx Participant: No New Discharge Prescriptions: New buPROPion XL [Wellbutrin XL] 450 mg PO DAILY 30 Days #30 tab Discharge Medication List buPROPion XL [Wellbutrin XL] 450 mg PO DAILY 30 Days #30 tab 12/25/21 [Rx] Follow up Appointment(s)/Referral(s): None,Stated [Primary Care Provider] - 1-2 days Activity/Diet/Wound Care/Special Instructions: Avoid the use of street drugs and alcohol. Take all prescriptions as prescribed. When you are in need of refills on your medications, please contact your medical provider and/or outpatient psychiatrist to have this done. Please go to scheduled outpatient appointment for aftercare treatment. If symptoms return or become worse, call the crisis line at and/or go to the nearest emergency room for evaluation. Discharge Disposition: HOME SELF-CARE
== END 2021-12-25 12:20 | disposition home or self-care (01) | DRG 885 ==
LOC: EC 06:11 → 3MHU 12:55
PROVIDERS: ADMIT Psychiatry & Neurology Psychiatry; ATTEND Psychiatry & Neurology Psychiatry
DX: F33.9 Major depressive disorder, recurrent, unspecified (principal); R45.851 Suicidal ideations; F34.1 Dysthymic disorder; F41.9 Anxiety disorder, unspecified; F90.9 Attention-deficit hyperactivity disorder, unspecified type; J45.909 Unspecified asthma, uncomplicated; Z79.899 Other long term (current) drug therapy; Z82.49 Family history of ischemic heart disease and other diseases of the circulatory system; Z83.3 Family history of diabetes mellitus; Z87.891 Personal history of nicotine dependence; Z28.21 Immunization not carried out because of patient refusal; Z20.822 Contact with and (suspected) exposure to COVID-19; Z28.310 Unvaccinated for COVID-19; Z71.89 Other specified counseling
CPT/HCPCS: 36415; 80143; 80306; 87635; 99285